=== PATIENT | male | born 1955 | race Hispanic/Latino ===

== ENCOUNTER 2017-09-01 11:59 | Emergency (ER) | payer MEDICARE ==
[2017-09-01 13:01] LABS: Basophils % (Auto) 0.1 % (0.0-1.8); Eosinophils # (Auto) 0.1 K/mm3 (0.0-0.4); Eosinophils % (Auto) 3.4 % (0.0-4.3); Hematocrit 42.6 % (35.5-45.6); Hemoglobin 14.1 gm/dl (11.8-15.2); Lymphocytes # (Auto) 0.7 K/mm3 (1.2-5.4); Lymphocytes % (Auto) 16.9 % (13.4-35.0); Mean Corpuscular HGB Conc 33 % (32-34); Mean Corpuscular Hemoglobin 30 pg (28-32); Mean Corpuscular Volume 89 fl (84-94); Monocytes # (Auto) 0.6 K/mm3 (0.0-0.8); Monocytes % (Auto) 14.1 % (0.0-7.3); Platelet Count 231 K/mm3 (140-440); Red Blood Count 4.78 M/mm3 (3.65-5.03); Red Cell Distribution Width 13.7 % (13.2-15.2)
[2017-09-01 13:04] LABS: BUN/Creatinine Ratio 26; Blood Urea Nitrogen 23 mg/dL (9-20); Calcium 9.5 mg/dL (8.4-10.2); Hemolysis Index 35
--- NOTE | 2017-09-01 22:58 | Emergency Department Report ---
ED Psych HPI - General Chief Complaint: Psych Stated Complaint: WANTS IRON LEVEL CHECKED Time Seen by Provider: 09/01/17 22:44 Source: patient Mode of arrival: Ambulatory - History of Present Illness Initial Comments: 62 yo male who comes in today due to stating that his blood pressure was getting low. He went to the nearest convenience store to check his blood pressure. Blood pressures recorded in his journal were not hypotensive. The patient is alert and oriented times four. He denies any suicidal/homicidal ideation. He does continue to state that he is changing and going in a different direction. MD Complaint: altered mental status -: This evening Associated Psychiatric Symptoms: none Quality: constant Improves With: none Worsens With: none Context: other (extensive psych history ) Associated Symptoms: denies other symptoms Treatments Prior to Arrival: none If Self Harm: other (none ) - Related Data Home Medications Medication Instructions Recorded Confirmed Last Taken No Known Home Medications [No 06/14/17 06/14/17 Unknown Reported Home Medications] Allergies Allergy/AdvReac Type Severity Reaction Status Date / Time corn syrup Allergy Rash Verified 09/01/17 12:05 divalproex sodium Allergy Rash Verified 09/01/17 12:05 [From Depakote] paliperidone [From Invega] Allergy Rash Verified 09/01/17 12:05 soy Allergy Rash Verified 09/01/17 12:05 Pork/Porcine Containing AdvReac Unknown Verified 09/01/17 12:05 Products artificial additives Allergy Rash Uncoded 06/14/17 20:04 ED Review of Systems ROS: Stated complaint: WANTS IRON LEVEL CHECKED Other details as noted in HPI Constitutional: denies: chills, fever Eyes: denies: eye pain, eye discharge, vision change ENT: denies: ear pain, throat pain Respiratory: denies: cough, shortness of breath, wheezing Cardiovascular: denies: chest pain, palpitations Endocrine: no symptoms reported Gastrointestinal: denies: abdominal pain, nausea, diarrhea Genitourinary: denies: urgency, dysuria Skin: denies: rash, lesions Neurological: denies: headache, weakness, paresthesias Psychiatric: other (psychosis ) Hematological/Lymphatic: denies: easy bleeding, easy bruising ED Past Medical Hx - Past Medical History Hx Hypertension: Yes Hx Psychiatric Treatment: Yes (bipolar schizophrenia affective disorder, , depression, Agressive) - Social History Smoking Status: Never Smoker Substance Use Type: None - Medications Home Medications: Home Medications Medication Instructions Recorded Confirmed Last Taken Type No Known Home Medications [No 06/14/17 06/14/17 Unknown History Reported Home Medications] ED Physical Exam - General Limitations: No Limitations General appearance: alert, in no apparent distress - Head Head exam: Present: atraumatic, normocephalic - Eye Eye exam: Present: normal appearance - ENT ENT exam: Present: mucous membranes moist - Neck Neck exam: Present: normal inspection - Respiratory Respiratory exam: Present: normal lung sounds bilaterally. Absent: respiratory distress - Cardiovascular Cardiovascular Exam: Present: regular rate, normal rhythm. Absent: systolic murmur, diastolic murmur, rubs, gallop - Extremities Exam Extremities exam: Present: other (bilateral feet deformities ) - Back Exam Back exam: Present: normal inspection - Neurological Exam Neurological exam: Present: alert, oriented X3 - Psychiatric Psychiatric exam: Present: other (psychosis?) - Skin Skin exam: Present: warm, dry, intact, normal color. Absent: rash ED Course Vital Signs 09/01/17 09/01/17 09/02/17 12:05 20:38 01:18 Temperature 97.9 F 98.6 F 98.4 F Pulse Rate 64 54 L 57 L Respiratory 16 18 14 Rate Blood Pressure 199/94 195/92 Blood Pressure 189/87 [Left] O2 Sat by Pulse 98 99 98 Oximetry 09/02/17 01:20 Temperature Pulse Rate Respiratory 14 Rate Blood Pressure Blood Pressure [Left] O2 Sat by Pulse 98 Oximetry - Reevaluation(s) Reevaluation #1: 09/02/17 01:58 I spoke with Mental Health about the patient. Mental Health stated that he is at baseline based on a prior visit and evaluation. The patient doesn't present a threat to himself or others. Mental Health states that he is safe to be discharged back to the care home. ED Medical Decision Making - Lab Data Result diagrams: 09/01/17 12:15 09/01/17 12:15 - Medical Decision Making Psychosis Bipolar disorder Schizophrenia - Differential Diagnosis psychosis, bipolar disorde, schizophrenia Critical care attestation.: If time is entered above; I have spent that time in minutes in the direct care of this critically ill patient, excluding procedure time. ED Disposition Clinical Impression: Psychosis, Bipolar disorder, Schizophrenia Disposition: DC-01 TO HOME OR SELFCARE Is pt being admited?: No Does the pt Need Aspirin: No Condition: Stable Instructions: Bipolar Disorder (ED), Schizophrenia (ED), Brief Psychotic Disorder (ED) Additional Instructions: Please follow up with your counselor/mental health professional on discharge. Referrals: PRIMARY CARE, [Primary Care Provider] - 3-5 Days Time of Disposition: 02:03
[2017-09-02 01:19] VITALS: BP 189/87
[2017-09-02 01:39] LABS: Bilirubin,Urine NEG (Negative); Blood,Urine NEG (Negative); Color,Urine Straw (Yellow); Nitrite,Urine NEG (Negative); Protein,Urine <15 mg/dL mg/dL (Negative); Urobilinogen,Urine < 2.0 mg/dL (<2.0)
[2017-09-02 01:47] LABS: Amphetamine Screen,Urine PRESUMPTIVE NEGATIVE; Benzodiazepines Screen,Urine PRESUMPTIVE NEGATIVE; Cannabinoid Screen,Urine PRESUMPTIVE NEGATIVE; Cocaine Screen,Urine PRESUMPTIVE NEGATIVE; Methadone Screen,Urine PRESUMPTIVE NEGATIVE; Opiate Screen,Urine PRESUMPTIVE NEGATIVE
== END 2017-09-02 06:05 | disposition home or self-care (01) ==
LOC: EEVIPCON 11:59 → ED 11:59
DX: F20.9 Schizophrenia, unspecified (principal); F31.9 Bipolar disorder, unspecified; F29 Unspecified psychosis not due to a substance or known physiological condition; I10 Essential (primary) hypertension; Z91.018 Allergy to other foods; Z88.8 Allergy status to other drugs, medicaments and biological substances
CPT/HCPCS: 36415; 80048; 80307; 81001; 85025; 99284; G0480; 80320; 99283

== ENCOUNTER 2017-09-27 20:39 | Emergency (ER) | payer MEDICARE ==
[2017-09-28] MEDS ORDERED: ATIVAN ONE (06:41)
--- NOTE | 2017-09-28 07:56 | Emergency Department Report ---
HPI - General Chief Complaint: Urogenital-Male Time Seen by Provider: 09/28/17 07:50 - HPI HPI: Patient is a 62-year-old male with a history of high blood pressure on amlodipine5 mg daily who presents to ED stating that is "male parts is hurting' ' patient states the since he has being here it has resolved. When asked further, patient states that he was having some discomfort in his testicle area. She states that now is resolved because yesterday he had some yogurt and feels like it did not sit well and his stomach and now he's having a mild upset stomach. Patient states the symptoms going on for about a week. Patient does deny any testicular swelling, penile discharge, penile lesions, dysuria or problems urinating or having bowel movements. He denies fevers/chest pain/ dizziness/headache or any other problems. ED Past Medical Hx - Past Medical History Hx Hypertension: Yes Hx Psychiatric Treatment: Yes (bipolar schizophrenia affective disorder, , depression, Agressive) - Surgical History Past Surgical History?: No - Social History Smoking Status: Never Smoker Substance Use Type: None - Medications Home Medications: Home Medications Medication Instructions Recorded Confirmed Last Taken Type No Known Home Medications [No 06/14/17 06/14/17 Unknown History Reported Home Medications] ED Review of Systems ROS: Stated complaint: MALE PARTS HURTING Other details as noted in HPI Constitutional: no symptoms reported. denies: chills, fever Eyes: denies: eye pain, eye discharge, vision change ENT: denies: ear pain, throat pain Respiratory: denies: cough, shortness of breath, wheezing Cardiovascular: denies: chest pain, palpitations Endocrine: no symptoms reported Gastrointestinal: denies: abdominal pain, nausea, diarrhea Genitourinary: testicular pain. denies: urgency, dysuria, frequency, hematuria , discharge, testicular mass Musculoskeletal: denies: back pain, joint swelling, arthralgia Skin: denies: rash, lesions Neurological: denies: headache, weakness, paresthesias Psychiatric: denies: anxiety, depression Hematological/Lymphatic: denies: easy bleeding, easy bruising Physical Exam - Physical Exam Vital Signs: Vital Signs 09/27/17 23:18 Temperature 97.7 F Pulse Rate 65 Respiratory 20 Rate Blood Pressure 182/93 O2 Sat by Pulse 97 Oximetry Physical Exam: GENERAL: Alert and oriented x3, no apparent distress, laying comfortable in the ED bed, speaking in normal sentences, Normal Gait, atraumatic. HEAD: Head is normocephalic and a-traumatic. EYES: Extra ocular muscles are intact. Pupils are equal, round, and reactive to light and accommodation. LUNGS: Symetrical with respiration, No wheezing, no rales or crackles, CTAB. HEART: S1, S2 present, regular rate and rhythm without murmur, no rubs, no gallops. Non tender to palpation ABDOMEN: No organomegaly was noted,Positive bowel sounds, soft, and non- distended. . Nontender to palpation on all Quadrants, NO CVA tenderness. UROGENITAL: No scrotal mass, Scrotum non tender to palpation bilaterally, no hernia, no scars or penile discharge. NEUROLOGIC: The patient is cooperative with no focal neurologic deficits. PSYCHIATRIC: Mood is congruent with affect, denies suicidal or homicidal ideations. SKIN: Warm and dry, No lesions, No ulceration or induration present. ED Course Vital Signs 09/27/17 23:18 Temperature 97.7 F Pulse Rate 65 Respiratory 20 Rate Blood Pressure 182/93 O2 Sat by Pulse 97 Oximetry ED Medical Decision Making - Medical Decision Making 62-year-old male presents to ED complaining of testicular pain that is now resolved. ED course: Urinalysis is negative gonorrhea and Chlamydia cultures sent Patient's blood pressure reduced while in ED and he was asymptomatic. I discussed with patient to continue his blood pressure medication as prescribed and take his morning dose when he got home. Vital signs are normal patient is in no acute distress Patient looks well nourished speaking in normal sentences and is in no neurological defect , patient ambulates properly with no problems, Vital signs are stabilized, suddenly discussed the patient is he has any worsening symptoms to return to ED immediately. Critical care attestation.: If time is entered above; I have spent that time in minutes in the direct care of this critically ill patient, excluding procedure time. ED Disposition Clinical Impression: Uncontrolled hypertension Disposition: DC-01 TO HOME OR SELFCARE Is pt being admited?: No Does the pt Need Aspirin: No Condition: Stable Instructions: Hypertension (ED) Additional Instructions: Make sure to follow up with the primary care physician as discussed. Take all your medications as you've been prescribed. If you have any worsening symptoms or develop new symptoms please return to ED immediately. Referrals: STEVE GORDON MD [Primary Care Provider] - 3-5 Days Forms: Work/School Release Form(ED) Time of Disposition: 08:48
[2017-09-28] MEDS ORDERED: NORVASC PO ONE (07:59)
[2017-09-28 08:29] LABS: Bilirubin,Urine NEG (Negative); Blood,Urine SM (Negative); Color,Urine Yellow (Yellow); Mucus,Urine FEW /HPF; Nitrite,Urine NEG (Negative); Urobilinogen,Urine < 2.0 mg/dL (<2.0)
[2017-09-28 08:46] VITALS: BP 172/85
[2017-09-28] MEDS ORDERED: NACL ONE (11:13)
== END 2017-09-28 09:33 | disposition home or self-care (01) ==
LOC: ED 20:39
DX: N50.819 Testicular pain, unspecified (principal); I10 Essential (primary) hypertension; F31.9 Bipolar disorder, unspecified; F25.9 Schizoaffective disorder, unspecified; Z88.8 Allergy status to other drugs, medicaments and biological substances; Z91.018 Allergy to other foods
CPT/HCPCS: 81001; 99283; J2060

== ENCOUNTER 2017-11-22 15:19 | Emergency (ER) | payer MEDICARE ==
[2017-11-22] MEDS ORDERED: ATIVAN PO ONE (21:54)
[2017-11-22] MEDS ORDERED: CATAPRES PO ONE (21:59)
--- NOTE | 2017-11-22 22:00 | Emergency Department Report ---
ED Psych HPI - General Chief Complaint: Skin Rash Stated Complaint: mh eval Time Seen by Provider: 11/22/17 21:54 Source: patient Mode of arrival: Ambulatory - History of Present Illness Initial Comments: CC 62-year-old male, history of bipolar and schizophrenia with depression and aggressive affect was sent by his niece Jesenia Bojorquez who is the legal guardian who is phone number is [phone]. For evaluation of worsening psychosis combative behavior perseveration delusions and paranoia. He is refusing to take his psych meds. He says that he presented to a clinic and they did blood test on him and he swerved about his history about his needle stick area although it has been normal. Family says is declining ambulance and the police all day long because he can't stop thinking about where he had a blood draw. He has no medical complaints no chest pain or shortness of breath no fever no abdominal complaints does have an elevated blood pressure at triage, blood draw site was itching him, no rashes noted, no airway problems, no stridor no drooling, no cp or cva sx -: Gradual, unknown Associated Psychiatric Symptoms: racing thoughts, delusions, other (paranoia) History of same: Yes Treatments Prior to Arrival: placed on mental he - Related Data Home Medications Medication Instructions Recorded Confirmed Last Taken No Known Home Medications [No 06/14/17 06/14/17 Unknown Reported Home Medications] Allergies Allergy/AdvReac Type Severity Reaction Status Date / Time corn syrup Allergy Rash Verified 09/01/17 12:05 divalproex sodium Allergy Rash Verified 09/01/17 12:05 [From Depakote] paliperidone [From Invega] Allergy Rash Verified 09/01/17 12:05 soy Allergy Rash Verified 09/01/17 12:05 Pork/Porcine Containing AdvReac Unknown Verified 09/01/17 12:05 Products artificial additives Allergy Rash Uncoded 06/14/17 20:04 ED Review of Systems ROS: Stated complaint: mh eval Other details as noted in HPI Comment: Unobtainable due to pts medical conditions ED Past Medical Hx - Past Medical History Hx Hypertension: Yes Hx Psychiatric Treatment: Yes (bipolar schizophrenia affective disorder, , depression, Agressive) - Social History Smoking Status: Never Smoker Substance Use Type: None - Medications Home Medications: Home Medications Medication Instructions Recorded Confirmed Last Taken Type No Known Home Medications [No 06/14/17 06/14/17 Unknown History Reported Home Medications] ED Physical Exam - General Limitations: No Limitations General appearance: alert, in no apparent distress, anxious - Head Head exam: Present: atraumatic, normocephalic - Eye Eye exam: Present: normal appearance, PERRL, EOMI - ENT ENT exam: Present: normal exam, normal orophraynx - Neck Neck exam: Present: normal inspection. Absent: tenderness, meningismus - Respiratory Respiratory exam: Present: normal lung sounds bilaterally. Absent: respiratory distress, wheezes, rales, rhonchi, stridor, chest wall tenderness, accessory muscle use, prolonged expiratory - Cardiovascular Cardiovascular Exam: Present: regular rate, normal rhythm, normal heart sounds. Absent: systolic murmur, diastolic murmur, rubs, gallop - GI/Abdominal GI/Abdominal exam: Present: soft. Absent: distended, tenderness, guarding, rebound, rigid, mass - Extremities Exam Extremities exam: Present: normal inspection, normal capillary refill. Absent: pedal edema, joint swelling, calf tenderness - Back Exam Back exam: Present: normal inspection. Absent: CVA tenderness (L), muscle spasm , paraspinal tenderness, vertebral tenderness - Neurological Exam Neurological exam: Present: alert, oriented X3, CN II-XII intact. Absent: motor sensory deficit ED Course Vital Signs 11/22/17 11/22/17 11/22/17 16:41 22:15 23:40 Temperature 98.2 F Pulse Rate 58 L 67 Respiratory 18 18 Rate Blood Pressure 220/101 199/91 O2 Sat by Pulse 98 98 Oximetry 11/23/17 00:03 Temperature Pulse Rate 67 Respiratory Rate Blood Pressure 199/91 O2 Sat by Pulse Oximetry ED Medical Decision Making - Lab Data Result diagrams: 11/22/17 22:15 11/22/17 22:15 - EKG Data -: EKG Interpreted by Me EKG shows normal: sinus rhythm - EKG Data Interpretation: no acute changes - Medical Decision Making Blood pressure was improved patient is medically clear for psychiatric patient, he was placed on 1013 given his worsening psychosis with delusions and paranoia , he was given chemical sedation for his psychosis given that he was a danger to self and others mental health to evaluate him and instructed to place him in anchored at this time Critical care attestation.: If time is entered above; I have spent that time in minutes in the direct care of this critically ill patient, excluding procedure time. ED Disposition Clinical Impression: Psychosis Disposition: DC/TX-65 PSY HOSP/PSY UNIT Is pt being admited?: No Condition: Stable Referrals: STEVE GORDON MD [Primary Care Provider] - 3-5 Days Time of Disposition: 04:25
[2017-11-22] MEDS ORDERED: HALDOL IM ONE (22:07)
[2017-11-22 22:25] LABS: Basophils % (Auto) 0.3 % (0.0-1.8); Eosinophils # (Auto) 0.2 K/mm3 (0.0-0.4); Eosinophils % (Auto) 4.6 % (0.0-4.3); Hematocrit 46.6 % (35.5-45.6); Hemoglobin 15.5 gm/dl (11.8-15.2); Lymphocytes # (Auto) 1.2 K/mm3 (1.2-5.4); Lymphocytes % (Auto) 24.3 % (13.4-35.0); Mean Corpuscular HGB Conc 33 % (32-34); Mean Corpuscular Hemoglobin 29 pg (28-32); Mean Corpuscular Volume 87 fl (84-94); Monocytes # (Auto) 0.4 K/mm3 (0.0-0.8); Monocytes % (Auto) 8.9 % (0.0-7.3); Platelet Count 221 K/mm3 (140-440); Red Blood Count 5.38 M/mm3 (3.65-5.03); Red Cell Distribution Width 14.8 % (13.2-15.2)
[2017-11-22 22:45] LABS: Alanine Aminotransferase 11 units/L (7-56); Albumin 4.2 g/dL (3.9-5); BUN/Creatinine Ratio 13; Blood Urea Nitrogen 13 mg/dL (9-20); Calcium 9.5 mg/dL (8.4-10.2); Hemolysis Index 11
[2017-11-22] MEDS ORDERED: ATIVAN ONE (23:15)
[2017-11-22] MEDS ORDERED: ATIVAN IM ONE (23:20)
[2017-11-22] MEDS ORDERED: NORMODYNE IV ONE ×2 (23:35→23:50)
[2017-11-23 01:11] LABS: Amphetamine Screen,Urine PRESUMPTIVE NEGATIVE; Benzodiazepines Screen,Urine PRESUMPTIVE NEGATIVE; Cannabinoid Screen,Urine PRESUMPTIVE NEGATIVE; Cocaine Screen,Urine PRESUMPTIVE NEGATIVE; Methadone Screen,Urine PRESUMPTIVE NEGATIVE; Opiate Screen,Urine PRESUMPTIVE NEGATIVE
--- NOTE | 2017-11-23 13:36 | Consultation ---
History of Present Illness - Reason for Consult Consult date: 11/23/17 Reason for consult: Mental Health Evaluation Requesting physician: RICHIE CORONA - Chief Complaint Chief complaint: "What is going on" - History of Present Psychiatric Illness 62 white male presenting to [facility] for bizarre behavior. Today the patient is calm, but disorganized and paranoid during the assessment. He could not explain his actions prior to his arrival to the ER. His answers to questions were not logical. He is fixated that something is "wrong" with his blood. He had to be redirected several time to keep him on topic, possibly responding to some type of stimuli. This patient is a poor historian at this time. No gestures of SI/HI's. Medications and Allergies Allergies Allergy/AdvReac Type Severity Reaction Status Date / Time corn syrup Allergy Rash Verified 09/01/17 12:05 divalproex sodium Allergy Rash Verified 09/01/17 12:05 [From Depakote] paliperidone [From Invega] Allergy Rash Verified 09/01/17 12:05 soy Allergy Rash Verified 09/01/17 12:05 Pork/Porcine Containing AdvReac Unknown Verified 09/01/17 12:05 Products artificial additives Allergy Rash Uncoded 06/14/17 20:04 Home Medications Medication Instructions Recorded Confirmed Last Taken Type No Known Home Medications [No 06/14/17 06/14/17 Unknown History Reported Home Medications] Mental Status Exam - Vital signs Last Vital Signs Temp 98.2 F 11/22/17 16:41 Pulse 67 11/23/17 00:03 Resp 14 11/23/17 01:30 BP 134/71 11/23/17 01:30 Pulse Ox 99 11/23/17 01:30 - Exam Narrative exam: MSE: Appearance: calm, cooperative Behavior: regular eye contact Speech: regular rate and tone Mood: unable to assess Affect: normal Thought Process: tangential Thought Content: no gestures of SI/HI's and AVH's, disorganized, paranoid Motor Activity: ambulatory Cognition: A/O x 3 Insight: poor Judgment: poor Results Result Diagrams: 11/22/17 22:15 11/22/17 22:15 Abnormal lab results 11/22/17 11/22/17 11/22/17 Range/Units 22:15 22:15 22:15 RBC 5.38 H (3.65-5.03) M/mm3 Hgb 15.5 H (11.8-15.2) gm/dl Hct 46.6 H (35.5-45.6) % [facility] % (Auto) 8.9 H (0.0-7.3) % Eos % (Auto) 4.6 H (0.0-4.3) % Chloride 95.1 L (98-107) mmol/L Glucose 138 H (75-100) mg/dL Salicylates < 0.3 L (2.8-20.0) mg/dL Acetaminophen (10.0-30.0) ug/mL 11/22/17 Range/Units 22:15 RBC (3.65-5.03) M/mm3 Hgb (11.8-15.2) gm/dl Hct (35.5-45.6) % [facility] % (Auto) (0.0-7.3) % Eos % (Auto) (0.0-4.3) % Chloride (98-107) mmol/L Glucose (75-100) mg/dL Salicylates (2.8-20.0) mg/dL Acetaminophen < 5.0 L (10.0-30.0) ug/mL All other labs normal. Assessment and Plan Assessment and plan: Impression: Unspecified Psychosis. Today the patient is calm, but disorganized and paranoid during the assessment. UDS negative. DDx: Schizophrenia, R/O Bipolar DO Recommendation/Plan: Continue 1013 with placement to [facility] today.
[2017-11-23 14:47] VITALS: BP 165/80
== END 2017-11-23 15:49 ==
LOC: ED 15:19
DX: F29 Unspecified psychosis not due to a substance or known physiological condition (principal); I10 Essential (primary) hypertension; F31.9 Bipolar disorder, unspecified; F20.9 Schizophrenia, unspecified
CPT/HCPCS: 36415; 80053; 80307; 85025; 93005; 93010; 96372; 96374; 99285; G0480; J1630; J2060; 80320

== ENCOUNTER 2018-09-03 19:10 | Emergency (ER) | payer MEDICARE ==
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
[2018-09-03 21:35] LABS: Alanine Aminotransferase 16 units/L (7-56); Albumin 4.5 g/dL (3.9-5); BUN/Creatinine Ratio 23; Blood Urea Nitrogen 23 mg/dL (9-20); Calcium 9.1 mg/dL (8.4-10.2); Hemolysis Index 2
[2018-09-03] MEDS ORDERED: CATAPRES PO STA (21:42)
[2018-09-03 22:00] LABS: Hematocrit 44.3 % (35.5-45.6); Hemoglobin 14.7 gm/dl (11.8-15.2); Mean Corpuscular HGB Conc 33 % (32-34); Mean Corpuscular Volume 90 fl (84-94); Platelet Count 266 K/mm3 (140-440); Red Blood Count 4.94 M/mm3 (3.65-5.03); Red Cell Distribution Width 14.8 % (13.2-15.2)
[2018-09-03 22:08] LABS: Amphetamine Screen,Urine PRESUMPTIVE NEGATIVE; Benzodiazepines Screen,Urine PRESUMPTIVE NEGATIVE; Cannabinoid Screen,Urine PRESUMPTIVE NEGATIVE; Cocaine Screen,Urine PRESUMPTIVE NEGATIVE; Methadone Screen,Urine PRESUMPTIVE NEGATIVE; Opiate Screen,Urine PRESUMPTIVE NEGATIVE
[2018-09-04] MEDS ORDERED: HCTZ PO SCH (11:00)
[2018-09-04] MEDS ORDERED: NORVASC PO SCH (11:00)
[2018-09-04] MEDS ORDERED: K-DUR PO ONE (14:20)
[2018-09-04 14:22] LABS: Amphetamine Screen,Urine PRESUMPTIVE NEGATIVE; Benzodiazepines Screen,Urine PRESUMPTIVE NEGATIVE; Cannabinoid Screen,Urine PRESUMPTIVE NEGATIVE; Cocaine Screen,Urine PRESUMPTIVE NEGATIVE; Methadone Screen,Urine PRESUMPTIVE NEGATIVE; Opiate Screen,Urine PRESUMPTIVE NEGATIVE
--- NOTE | 2018-09-04 15:00 | Progress Note ---
Subjective - Chief Complaint Chief complaint: Current Psychiatric Medications: Past Psychiatric History: Past Psychiatric Medication Trials: Trauma/Abuse History: Drug/Alcohol Abuse History: Social History: Family History of Psychiatric Illness/Substance Abuse: Mental Status Exam - Vital signs Last Vital Signs Temp 98.1 F 09/04/18 08:00 Pulse 62 09/04/18 14:50 Resp 18 09/04/18 08:00 BP 188/95 09/04/18 14:50 Pulse Ox 98 09/04/18 08:00
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
[2018-09-04 16:34] LABS: Bilirubin,Urine NEG (Negative); Blood,Urine NEG (Negative); Color,Urine Straw (Yellow); Protein,Urine <15 mg/dL mg/dL (Negative); Urobilinogen,Urine < 2.0 mg/dL (<2.0); WBC,Urine < 1.0 /HPF (0.0-6.0)
[2018-09-04] MEDS ORDERED: CATAPRES ONE (19:39)
[2018-09-04] MEDS ORDERED: ADRENALIN ONE (20:36)
[2018-09-04] MEDS ORDERED: SOLU-Medrol ONE (20:37)
[2018-09-04] MEDS ORDERED: BENADRYL ONE (20:38)
[2018-09-04 21:13] VITALS: BP 176/92
[2018-09-04] MEDS ORDERED: HALDOL PO SCH (22:00)
[2018-09-05] MEDS ORDERED: K-DUR PO SCH (10:00)
== END 2018-09-05 00:10 ==
LOC: EEVIPCON 19:10 → ED 19:10
DX: F23 Brief psychotic disorder (principal); F31.9 Bipolar disorder, unspecified; F25.9 Schizoaffective disorder, unspecified; Z91.09 Other allergy status, other than to drugs and biological substances; Z88.8 Allergy status to other drugs, medicaments and biological substances
CPT/HCPCS: 36415; 80053; 80307; 81001; 85027; 99285; G0480; 80320; J0171; J1200; J2920